=== PATIENT | male | born 1965 | race Caucasian/White ===

== ENCOUNTER 2023-02-19 08:28 | Outpatient (OUT) | payer OTHER, SELFPAY ==
[2023-02-19 08:58] LABS: Basophils Percent Auto 0.5 % (0.2-2.0); Eosinophils Absolute Auto 0.1 10^3/uL (0.0-0.7); Eosinophils Percent Auto 1.5 % (0.9-7.0); Immature Granulocytes Abs Auto 0.02 10^3/uL (0.00-0.03); Immature Granulocytes Pct Auto 0.3 % (0.0-0.5); Lymphocytes Absolute Auto 2.3 10^3/uL (1.2-3.8); Mean Corpuscular Hemoglobin 30.4 pg (25.9-34.0); Mean Corpuscular Volume 89.3 fL (80.0-94.0); Mean Platelet Volume 9.7 fL (9.5-13.5); Monocytes Absolute Auto 0.7 10^3/uL (0.3-0.8); Neutrophils Percent Auto 49.7 % (43.0-75.0); Platelet Count 217 10^3/uL (150-450); Red Cell Distribution Width 12.4 % (11.0-15.0); White Blood Count 6.1 10^3/uL (4.0-11.0)
[2023-02-19 09:33] LABS: Alanine Aminotransferase 56 U/L (16-63); Albumin Globulin Ratio 1.4; Albumin Level 4.2 g/dL (3.4-5.0); Alkaline Phosphatase 66 U/L (46-116); Anion Gap 13.1; Aspartate Amino Transferase 23 U/L (15-37); BUN Creatinine Ratio 21.3; Bilirubin Total 0.6 mg/dL (0.2-1.0); Calcium 9.5 mg/dL (8.5-10.1); Chloride 103 mmol/L (98-107); Chol HDL Ratio 4.8; Cholesterol 205 mg/dL (<=200); Estimated GFR (African America >60 (>=60); Estimated GFR (Non-African Ame >60 (>=60); Globulin 3.1 g/dL; Glucose 111 mg/dL (74-106); HDL Cholesterol 43 mg/dL (40-60); Potassium 4.1 mmol/L (3.5-5.1); Sodium 140 mmol/L (136-145); Total Protein 7.3 g/dL (6.4-8.2); Triglycerides 148 mg/dL (<=150); VLDL CHOLESTEROL 29.6 mg/dL
[2023-02-21 19:07] LABS: Free Testosterone(Direct) 9.6 pg/mL (7.2-24.0); Testosterone 682 ng/dL (264-916)
== END 2023-02-19 08:29 | disposition home or self-care (01) ==
LOC: LAB 08:31
PROVIDERS: PCP Family Medicine; Visit Provider Family Medicine
DX: Z00.00 Encounter for general adult medical examination without abnormal findings (principal); Z12.5 Encounter for screening for malignant neoplasm of prostate; R53.83 Other fatigue
CPT/HCPCS: 36415; 80053; 80061; 84402; 84403; 85025; G0103